=== PATIENT | female | born 1970 ===

== ENCOUNTER 2019-09-11 09:45 | Day surgery (SDC) | payer OTHER ==
[~2019-09-11 09:45] MED LIST: ALDACTAZIDE 501 EACH PO; ATIVAN2 M1 PO; ECOTRIN81 MG PO; FOLIC ACID0.8 M1 PO; IRON325 MG PO; LASIX20 MG PO; METFORMIN HCL500 M3 PO; MULTI-VITAMIN1 EACH PO; PROPANALOL PO; REGLAN5 MG/5 ML PO
[2019-09-11] MEDS ORDERED: Tylenol #3 PO (14:31)
[2019-09-11] MEDS ORDERED: MORGIDOX100 MG PO (14:31)
== END 2019-09-11 17:00 | disposition home or self-care (01) ==
LOC: CIR.AMB 09:45
DX: D25.0 Submucous leiomyoma of uterus (principal); N84.0 Polyp of corpus uteri